=== PATIENT | female | born 1955 | race Caucasian/White ===

== ENCOUNTER → 2017-01-21 | Outpatient (CLI) | payer OTHER | LOC: FIMAGING 15:23 | DX: Z12.31 Encounter for screening mammogram for malignant neoplasm of breast (principal) | CPT/HCPCS: G0202 ==

== ENCOUNTER 2017-01-29 07:15 | Inpatient (IN) | payer OTHER ==
[2017-04-02] MEDS ORDERED: ROPI/epiNEPH/KETOROLAC JOINT COCKTAIL IU ONE (06:00)
[2017-04-02] MEDS ORDERED: FAMOTIDINE 20 MG TAB PO ONE (06:00)
[2017-04-02] MEDS ORDERED: CHLORHEXIDINE GLUC HIBICLENS 118 ML BTL TP ONE (06:00)
[2017-04-02] MEDS ORDERED: TRANEXAMIC ACID 1,100 MG in NS 100 ML IV ONE (06:00)
[2017-04-02] MEDS ORDERED: DEXAMETHASONE 4 MG/ML VIAL IVP ONE (06:00)
[2017-04-02] MEDS ORDERED: ACETAMINOPHEN 325 MG TAB PO ONE (06:00)
[2017-04-02] MEDS ORDERED: POVIDONE-IODINE 20 ML in SODIUM CL IRRIG SOLUTION 500 ML IRR ONE (06:00)
[2017-04-02] MEDS ORDERED: CEFAZOLIN 2 GM/DEXTR 100 ML IV ONE (06:00)
[2017-04-02] MEDS ORDERED: LIDOCAINE 1% 2 ML INJ ONE (06:05)
[2017-04-02] MEDS ORDERED: ceFAZolin 1 GM/5 ML SYR ONE (06:58)
[2017-04-02] MEDS ORDERED: PROPOFOL/EMULSION 500 MG/50 ML BOTTLE IV ONE (07:03)
[2017-04-02] MEDS ORDERED: LR 1,000 ML IV ONE (07:06)
[2017-04-02] MEDS ORDERED: LIDOCAINE 1% 5 ML SDV ID PRN (07:06)
[2017-04-02] MEDS ORDERED: MIDAZOLAM 2 MG/2 ML VIAL ONE (07:18)
--- NOTE | 2017-04-02 07:28 | GHP ---
[f rep st] PREOP HISTORY AND PHYSICAL DATE OF ADMISSION: 04/02/2017 She will be an a.m. admission for surgery on Sunday, April 02, 2017. PROBLEM: Right hip arthritis. HISTORY OF PRESENT ILLNESS: The patient is a 62-year-old woman admitted for a right total hip arthr oplasty. She has had progressive pain for the past 6 months. She is having daily pain. She experi ences radiation down into the thigh and knee. She is using ibuprofen occasionally. She has trouble putting on her shoes and socks on the right foot. She occasionally has night pain. Her activities are limited. PAST MEDICAL HISTORY: She has a left total hip replacement done 3 years ago. She is treated for hy pothyroidism. CURRENT MEDICATIONS: Thyroid replacement. ALLERGIES: Drug allergies: None. Metal allergy: None. Latex allergy: None. FAMILY HISTORY: Positive for arthritis and heart disease. PHYSICAL EXAMINATION: GENERAL: She is a tall, thin, healthy-appearing woman. Height 5 feet 6 inch es. Weight 122 pounds. BMI 19.7. EYES: The conjunctivae and sclerae are clear. Pupils are round and reactive. MOUTH: Good oral hygiene. No loose teeth. CHEST: Clear. HEART: Regular rhythm. No murmurs. EXTREMITIES: Pertinent findings limited to her right hip. She has full hip extensio n and 100 degrees of flexion. External rotation 10 degrees. Internal rotation 10 degrees. Abducti on 30 degrees. IMAGING: Her films show very severe degenerative arthritis of the right hip. She has bone on bone. She has subchondral sclerosis and peripheral osteophytes. She has mild flattening of her femoral head. IMPRESSION ON ADMISSION: 1. Right hip advanced degenerative arthritis. 2. Three years status post conversion of left BHR to a total hip arthroplasty. 3. Treatment for hypothyroidism. PLAN: She will undergo a right total hip arthroplasty. The surgery has been described to her, incl uding the risks, complications, expectations, and recovery time. I have talked to her about the ris k of dislocation, leg length inequality, infection, and sciatic nerve injury. She understands that she is relatively young for a total hip replacement and might require revision surgery in her lifeti me. All her questions have been answered, and she consents to surgery. /[id number]/MODL
--- NOTE | 2017-04-02 08:51 | POSTOPPROG ---
Post Op Note Date of Operation: 04/02/17 Surgeon: Nathaniel Paez Communications Controller: Melanie Anesthesiologist: Shira Anesthesia: IV Sedation, Spinal Post-op Diagnosis: R hip arthritis Procedure: R MATTHEW Inf/Abcess present in the surg proc area at time of surgery?: No EBL: 100-500
[2017-04-02] MEDS ORDERED: ONDANSETRON 4 MG/2 ML VIAL IVP PRN (08:56)
[2017-04-02] MEDS ORDERED: PROMETHAZINE HCL 25 MG SUPPR PR PRN (08:56)
[2017-04-02] MEDS ORDERED: MAGNESIUM HYDROXIDE 30 ML UDCUP PO PRN (08:56)
[2017-04-02] MEDS ORDERED: PHARMACY PAIN CONSULT 1 EA MISC PRN (08:56)
[2017-04-02] MEDS ORDERED: ONDANSETRON DISINTEGRATING 4 MG TAB PO PRN (08:56)
[2017-04-02] MEDS ORDERED: TEMAZEPAM 15 MG CAP PO PRN (08:56)
[2017-04-02] MEDS ORDERED: CYCLOBENZAPRINE 10 MG TAB PO PRN (08:56)
[2017-04-02] MEDS ORDERED: DIPHENOXYLATE/ATROPINE LOMOTIL 1 TAB PO PRN (08:56)
[2017-04-02] MEDS ORDERED: METOCLOPRAMIDE 10 MG/2 ML VIAL IVP PRN (08:56)
[2017-04-02] MEDS ORDERED: KETOROLAC 30 MG/1 ML SDV IVP PRN (08:56)
[2017-04-02] MEDS ORDERED: BISACODYL 10 MG SUPP PR PRN (08:56)
[2017-04-02] MEDS ORDERED: traMADol 50 MG TAB PO PRN (08:56)
[2017-04-02] MEDS ORDERED: NS 500 ML IV PRN (08:56)
[2017-04-02] MEDS ORDERED: POLYETHYLENE GLYCOL 3350 17 GM PKT PO PRN (08:56)
[2017-04-02] MEDS ORDERED: LACTULOSE 20 GM/30 ML UDCUP PO PRN (08:56)
[2017-04-02] MEDS ORDERED: oxyCODONE IR 5 MG TAB PO PRN (08:56)
[2017-04-02] MEDS ORDERED: diphenhydrAMINE 25 MG CAP PO PRN (08:56)
[2017-04-02] MEDS ORDERED: LR 1,000 ML IV SCH (09:00)
--- NOTE | 2017-04-02 09:43 | GOP ---
[f rep st] OPERATIVE REPORT DATE OF OPERATION: 04/02/2017 SURGEON: Nathaniel Paez MD LEAN MANAGER: Norbert Bennett CFA. Sudarshan Webb, PAC. ANESTHESIA: Combination of Marcaine spinal and IV sedation by Dr. Rufino Silva. PREOPERATIVE DIAGNOSIS: Right hip severe degenerative arthritis. POSTOPERATIVE DIAGNOSIS: Right hip severe degenerative arthritis. PROCEDURE PERFORMED: Right total hip arthroplasty, Oxinium femoral head on highly cross-linked poly ethylene cup liner. FINDINGS: DESCRIPTION OF PROCEDURE: The patient was given 2 g of IV Ancef preoperatively within 60 minutes of surgery. She also received IV tranexamic acid at a dose of 20 mg/kg. She was placed on the operat ing room table and given spinal anesthesia with Marcaine by Dr. Rufino Silva. She was then placed sup ine and given IV sedation. A Albright catheter was not used. She wore a KENAN stocking and SCD on the n onoperative leg. She was rolled to the left lateral decubitus position. The position was secured w ith the pegboard table attachment. An axillary roll was used and all pressure points were carefully padded. I was careful to lock her pelvis in a rigid vertical position. Her perineum was isolated with plastic adhesive drapes. The right hip and right lower extremity were prepped with ChloraPrep. They were draped free using sterile sheets, stockinette, and Ioban plastic drape. The [employer] time-out was performed to verify the correct surgical side and site an d the correct patient identity. The Finley time-out was also performed. I made a 4-5-inch straight oblique posterolateral hip skin incision. Subcutaneous tissues were dony ply divided and hemostasis was obtained using electrocautery. Her fascia shaneka was identified. I deja st split a small portion of the proximal fascia shaneka along the axis of its fibers. I then curved po steriorly and proximally split the fascia of the gluteus sriram and bluntly split the muscle fibers in line with their orientation. The Charnley self-retaining retractor was inserted. Her sciatic n erve was located, partially exposed and protected throughout the procedure. She is very thin and he r nerve was very close to where we were working. The external rotators and the posterior hip capsul e were divided as separate layers at the base of the femoral neck, tagged and reflected posteriorly. A smooth 8-inch Steinmann pin was inserted vertically into the ilium superior to the acetabulum. An 8-inch drill bit was inserted vertically into the greater trochanter and parallel to the first pi n. The distance between the two was measured for leg length reference. Her femoral head was disloc ated posteriorly. She had severe degenerative changes on the femoral head. Femoral neck was osteot omized at the appropriate level and inclination. I was careful to preserve all the posterior capsule and most of the anterior capsule. The remnant o f her damaged labrum was excised. I prepared the femur first. This allowed me to xm1 tank driver the amount of natural femoral neck anteversion . This, in turn, allowed me to later determine the correct amount of cup anteversion. She had appr oximately 10-12 degrees of natural femoral neck anteversion. The canal was opened laterally with a box chisel. I reamed and broached sequentially up to size 12. I used a size 12 broach as a trial s tem. I was careful to lateralize adequately. Appropriate retractors were inserted to expose the acetabulum. The acetabulum was reamed sequential ly up to 52 mm. I selected a 52 mm Moreau and Nephew R3 solid-backed hemispherical shell. This was tapped securely into place in the proper degree of inclination anteversion. I used the transverse a cetabular ligament and other acetabular bony landmarks to help me properly orient the cup. Cup fixa tion was good, and I did not think supplemental screws were necessary. I inserted a screw-in metal dome hole plug. I performed a series of trial reductions to determine length and stability. I concluded that the si ze 12 stem with a 0 neck length and a 32 mm head with a flush or 0 degree liner gave me the proper c ombination of appropriate length and good anterior and posterior stability. She was 4-5 mm short pr eoperatively, and I was intentionally lengthening her. She had bony osteophytes superiorly and ante riorly around the acetabulum. These were removed with an osteotome and rongeur. The flush or 0 degree Moreau and Nephew R3 highly cross-linked polyethylene liner was inserted and ta pped securely into place. I selected a Moreau and Nephew Synergy stem size 12 with standard offset. This was inserted press-fit and was very tight. I did 1 final trial reduction and confirmed that t he 0 neck length with a 32 mm head was the proper combination. I inserted the Moreau and Nephew Oxin ium head with an outside diameter of 32 mm and a neck length of 0 mm. The acetabulum was irrigated and cleaned and the hip was reduced 1 final time. She had excellent anterior and posterior stabilit y and appropriate lengthening. 40 mL of the joint anesthetic cocktail were injected into the capsule, the deep musculature, and the subcutaneous tissues around the skin edges. The joint was thoroughly irrigated 1 final time with a dilute Betadine solution. Her sciatic nerve was carefully reinspected and looked unharmed. The ex ternal rotators and the posterior hip capsule were repaired in separate layers with #2 FiberWire sut ures through drill holes in the greater trochanter. This provided a strong posterior capsular and e xternal rotator repair. Her fascia shaneka was closed first with a single [id number]-[id number]-fvowk #2 FiberWire suture followed by a running #2 barbed Ethicon StrataFix PDO suture. The subcutaneous tissues were closed with a running 0 barbed Ethicon StrataFix Monoderm suture. The skin was closed with a runni ng 3-0 barbed Ethicon StrataFix Monoderm subcuticular suture. The skin edges were reapproximated an d sealed with Dermabond glue. The wound was covered with a strip of Telfa, and everything was held in place with a piece of clear plastic Tegaderm. A long-leg KENAN stocking and SCD were applied to her right lower extremity. An abduction pillow was placed between her knees. She was awakened from anesthesia and rolled to the supine position on her [facility]. She was taken to PACU in satisfactory condition. There were no recognized intrao perative complications. The estimated blood loss was about 200 mL. I used a Moreau and Nephew R3 hemispherical solid-backed acetabular shell with an outside diameter of 52 mm. The liner was a Moreau and Nephew R3 0 degree highly cross-linked liner with an inside diame ter of 32 mm. The femoral component was a press-fit Moreau and Nephew standard offset Synergy stem i n size 12. The femoral head was a Moreau and Nephew Oxinium head with a 0 neck length and a 32 mm ou tside diameter. Norbert Bennett and Bashir Webb acted as surgical assistants. Their assistance was a medical rhonda jennings. /[id number]/MODL
[2017-04-02] MEDS: MULTIVITAMINS 1 EACH TAB PO SCH (10:44)
[2017-04-02] MEDS: SENNOSIDES/DOCUSATE SODIUM TAB PO SCH ×2 (10:45→21:08)
[2017-04-02] MEDS: ACETAMINOPHEN 325 MG TAB PO SCH ×3 (13:52→23:50)
[2017-04-02] MEDS: TRANEXAMIC ACID 650 MG TAB PO SCH ×2 (13:52→21:07)
[2017-04-02] MEDS: CHOLECALCIFEROL VIT D3 2,000 UNITS TAB/CAP PO SCH (13:53)
[2017-04-02] MEDS: ceFAZolin 2 GM/DEXTROSE 100 ML IV SCH ×2 (15:16→21:19)
[2017-04-02] MEDS: FAMOTIDINE 20 MG TAB PO SCH (21:09)
[2017-04-02] MEDS: ASPIRIN 325 MG TAB PO SCH (21:23)
[2017-04-03] MEDS: TRANEXAMIC ACID 650 MG TAB PO SCH (05:14)
[2017-04-03] MEDS: ACETAMINOPHEN 325 MG TAB PO SCH ×2 (05:14→12:05)
[2017-04-03 05:32] LABS: HEMATOCRIT 33.8 % (38.0-47.0); HEMOGLOBIN 11.3 g/dL (12.6-16.3)
[2017-04-03] MEDS ORDERED: LEVOTHYROXINE 112 MCG TAB PO SCH (06:00)
--- NOTE | 2017-04-03 07:39 | SOAPPROG ---
SOAP Progress Note Assessment/Plan: Assessment: Awake and alert. Min pain. Up and walking. Sciatic nerve intact. H/H is good. Films look good. Plan: Up with PT DC later today. 04/03/17 07:37 Objective: Vital Signs Temp Pulse Resp BP Pulse Ox 36.7 C 69 18 120/67 99 04/03/17 05:30 04/03/17 05:30 04/03/17 05:30 04/03/17 05:30 04/03/17 05:30 Laboratory Results 04/03/17 05:07 04/02/17 04/03/17 04/04/17 05:59 05:59 05:59 Intake Total 2370 Output Total 1200 Balance 1170 ICD10 Worksheet Patient Problems: Problems Problem Status Onset Osteoarthritis of right hip Acute
[2017-04-03 08:00] VITALS: O2SAT 94
--- NOTE | 2017-04-03 08:17 | GDS ---
[f rep st] DISCHARGE SUMMARY ADMISSION DIAGNOSIS: Right hip arthritis. DISCHARGE DIAGNOSIS: Right hip arthritis. OPERATION PERFORMED: 04/02/2017, right total hip arthroplasty, Oxinium femoral head on highly cross -linked polyethylene cup liner. POSTOPERATIVE COMPLICATIONS: None. CONDITION ON DISCHARGE: Improved. DESCRIPTION OF HOSPITAL COURSE: The patient was admitted to the hospital the morning of surgery. H er admission CBC was normal. The same day, under a combination of Marcaine, spinal, and IV sedation , she underwent a right total hip arthroplasty. Postoperatively, she was treated with multimodal DV T prophylaxis, including aspirin and early mobilization. On the first postoperative day, her hemogl obin and hematocrit were 11.3 and 33.8. She was seen by Physical Therapy and made excellent progres s with ambulation. By the time of discharge, she was afebrile, her wound was clean and dry, and she was independent in walking. DISPOSITION: She is discharged to her home. It is passed out. Continue KENAN stockings for 1 week. Continue aspirin 325 mg p.o. daily for 21 days. She will go to outpatient physical therapy. Use a n abduction pillow in bed for 3 weeks. She may progress to full weight bearing as tolerated on the right. She has prescriptions for tramadol and oxycodone, for pain control. I will see her back in the office on 04/21/2017. If there are any problems, she is to call me at the office. /[id number]/MODL
[2017-04-03] MEDS: SENNOSIDES/DOCUSATE SODIUM TAB PO SCH (09:41)
[2017-04-03] MEDS: ASPIRIN 325 MG TAB PO SCH (09:41)
[2017-04-03] MEDS: CHOLECALCIFEROL VIT D3 2,000 UNITS TAB/CAP PO SCH (09:41)
[2017-04-03] MEDS: MULTIVITAMINS 1 EACH TAB PO SCH (09:42)
[2017-04-03] MEDS: FAMOTIDINE 20 MG TAB PO SCH (09:42)
[2017-04-03 11:21] VITALS: BP 115/54; PULSE 57; RESP 18; TEMP 98.4
== END 2017-04-03 15:11 | disposition home or self-care (01) | DRG 470 ==
LOC: F3N 04-02 05:33
PROVIDERS: ADMIT Orthopaedic Surgery; ATTEND Orthopaedic Surgery
PROC: 0SR90JZ Replacement of Right Hip Joint with Synthetic Substitute, Open Approach (ICD-10-PCS; principal; 2017-04-02 07:15)
DX: M16.11 Unilateral primary osteoarthritis, right hip (principal); E03.9 Hypothyroidism, unspecified; Z96.642 Presence of left artificial hip joint
CPT/HCPCS: 97110-GP; 97116-GP; 97161-GP; 97165-GO; 97530-GP; 97535-GO; J0171; J0690; J1100; J1885; J2250; J2704; J2795

== ENCOUNTER → 2018-01-27 | Outpatient (CLI) | payer OTHER | LOC: FIMAGING 15:56 | PROVIDERS: ATTEND Internal Medicine | DX: Z12.31 Encounter for screening mammogram for malignant neoplasm of breast (principal) ==

== ENCOUNTER 2018-11-02 14:03 | Emergency (ER) | payer OTHER ==
[2018-11-02 14:16] VITALS: BP 128/69
--- NOTE | 2018-11-02 14:54 | EDPHY ---
H & P Stated Complaint: R eye floaters x2D, painless Time Seen by Provider: 11/02/18 14:22 HPI/ROS: CHIEF COMPLAINT: Right eye change in vision HISTORY OF PRESENT ILLNESS: 63-year-old female presents with a change in vision in the right eye. 2 days ago, she noted floaters in the right upper periphery of her vision. Yesterday it seemed like veil over vision that she could see through. The veil seemed to move in locations, sometimes in the right upper part of her vision sometimes in the middle vision. No change in visual acuity. No recent trauma. REVIEW OF SYSTEMS: complete 10 point ROS reviewed and is negative except for the noted elements in the HPI - Personal History Current Tetanus/Diphtheria Vaccine: Yes Tetanus Vaccine Date: UNSURE - Medical/Surgical History Hx Asthma: No Hx Chronic Respiratory Disease: No Hx Diabetes: No Hx Cardiac Disease: No Hx Renal Disease: No Hx Cirrhosis: No Hx Alcoholism: No Hx HIV/AIDS: No Hx Splenectomy or Spleen Trauma: No Other PMH: Hypothyroid, Left Hip Repacement 2006, - Social History Smoking Status: Never smoked Alcohol Use: Sober Drug Use: None - Physical Exam Exam: Visual Acuity: able to read without problem Lids: no proptosis, no periorbital erythema or swelling, no vesicles Conjunctivae: No erythema, no discharge Pupils: equal round and reactive to light EOMI Cornea: Normal Anterior chamber:Clear, no hyphema Fundi: normal inspection Constitutional: Initial Vital Signs Temperature (C) 36.7 C 11/02/18 14:14 Heart Rate 71 11/02/18 14:14 Respiratory Rate 16 11/02/18 14:14 Blood Pressure 128/69 H 11/02/18 14:14 O2 Sat (%) 96 11/02/18 14:14 O2 Delivery Mode Room Air Allergies/Adverse Reactions: No Known Allergies Allergy (Verified 11/02/18 14:13) Home Medications: Medication Instructions Recorded Cholecalciferol (Vitamin D3) 2,400 unit PO DAILY 03/05/17 [Vitamin D3] Levothyroxine [Synthroid 112 mcg 112 mcg PO DAILY06 03/05/17 (*)] Multivitamins [Multivitamin (*)] 1 each PO DAILY 03/05/17 celeCOXIB [Celebrex (*)] 200 mg PO DAILY PRN 05/02/17 Acetaminophen [Tylenol 325mg (*)] 650 mg PO Q6HRS #0 tab 04/03/17 Aspirin [Aspirin 325 mg (*)] 325 mg PO DAILY #21 tab 04/03/17 Ondansetron Odt [Zofran Odt 4 mg 4 mg PO Q4HRS PRN #0 tab 04/03/17 (*)] oxyCODONE IR [Oxycodone Ir (*)] 5 - 10 mg PO Q3HRS PRN #0 tab 04/03/17 traMADol [Ultram 50 mg (*)] 50 mg PO Q6HRS PRN #0 tab 04/03/17 Medical Decision Making ED Course/Re-evaluation: This pt presents with likely PVD. Doubt retinal detachment. I consulted Dr. Lemon, who will f/u with the pt in the office. Differential Diagnosis: Differential diagnosis includes hyphema, acute iritis, traumatic mydriasis, corneal abrasion, globe rupture. Departure - Departure Disposition: Home, Routine, Self-Care Clinical Impression: Vitreous floaters of right eye Condition: Good Instructions: Visual Floaters (ED) Additional Instructions: Return for worsening symptoms, including loss of vision, many floaters (10+), any concerns. Referrals: Romel Lemon MD [Medical Doctor] - As per Instructions (Call on November 04 to make an appointment.)
== END 2018-11-02 15:08 | disposition home or self-care (01) ==
DX: H43.391 Other vitreous opacities, right eye (principal); E03.9 Hypothyroidism, unspecified; Z96.642 Presence of left artificial hip joint

== ENCOUNTER → 2019-02-16 | Outpatient (CLI) | payer OTHER | LOC: FIMAGING 13:27 | PROVIDERS: ATTEND Physician Assistant Medical | DX: Z12.31 Encounter for screening mammogram for malignant neoplasm of breast (principal) ==